=== PATIENT | male | born 1995 | race Caucasian/White ===

== ENCOUNTER 2023-06-20 07:25 | Emergency (ER) | payer SELFPAY ==
[~2023-06-20] VITALS: Ht 182.9 cm; Wt 81.7 kg
[2023-06-20 07:38] VITALS: BP 125/81
== END 2023-06-20 07:59 | disposition home or self-care (01) ==
LOC: ER 07:25
DX: T16.1XXA Foreign body in right ear, initial encounter (principal); X58.XXXA Exposure to other specified factors, initial encounter
CPT/HCPCS: 69200; 99282-25